=== PATIENT | male | born 1940 | race Caucasian/White ===

== ENCOUNTER 2025-02-10 00:21 | Emergency (ER) | payer MEDICARE, OTHER ==
[2025-02-10] MEDS: Bacitracin Oint 1 GM U/D Packet TOP ONE (01:01)
[2025-02-10] MEDS: Lidocaine 1% with EPINEPHrine 1:100,000 50 ML MDV SUBCUT STA (01:02)
== END 2025-02-10 01:45 | disposition home or self-care (01) ==
LOC: JP.ED 00:21
DX: S81.011A Laceration without foreign body, right knee, initial encounter (principal); I10 Essential (primary) hypertension; Z79.899 Other long term (current) drug therapy; Z79.02 Long term (current) use of antithrombotics/antiplatelets; X58.XXXA Exposure to other specified factors, initial encounter
CPT/HCPCS: 12002; 73562-26-RT; 73562-RT; 99283